=== PATIENT | female | born 1935 | race Caucasian/White ===

== ENCOUNTER → 2021-09-10 | Outpatient (CLI) | payer MEDICARE, OTHER | LOC: KOH-I 10:36 | DX: R05.9 Cough, unspecified (principal); R91.1 Solitary pulmonary nodule | CPT/HCPCS: 71046 ==

== ENCOUNTER → 2021-09-25 | Outpatient (CLI) | payer MEDICARE, OTHER | LOC: KOH-I 14:38 | DX: R93.89 Abnormal findings on diagnostic imaging of other specified body structures (principal); R91.8 Other nonspecific abnormal finding of lung field; K76.89 Other specified diseases of liver; K80.20 Calculus of gallbladder without cholecystitis without obstruction; E27.8 Other specified disorders of adrenal gland | CPT/HCPCS: 71250 ==

== ENCOUNTER → 2021-10-07 | Outpatient (CLI) | payer MEDICARE, OTHER | LOC: MRI 08:32 | DX: E27.8 Other specified disorders of adrenal gland (principal); R93.89 Abnormal findings on diagnostic imaging of other specified body structures | CPT/HCPCS: 36415; 74183; 82565; A9577 ==

== ENCOUNTER → 2021-11-11 | Outpatient (CLI) | payer MEDICARE, OTHER ==
[~2021-11-11] MED LIST: CALCIUM; HYDROCODON-ACE1 EAC6 PO; LIPITOR10 MG PO; TOPROL XL25 MG PO; VITAMIN B12; VITAMIN D; ZOFRAN 4 MG TAB4 MG PO
== END ==
LOC: OPSV2 12:30
DX: Z01.810 Encounter for preprocedural cardiovascular examination (principal); S52.502A Unspecified fracture of the lower end of left radius, initial encounter for closed fracture
CPT/HCPCS: 93005

== ENCOUNTER → 2021-11-12 | Day surgery (SDC) | payer MEDICARE, OTHER ==
[~2021-11-12] VITALS: Ht 162.6 cm; Wt 71.7 kg
== END | disposition home or self-care (01) ==
LOC: OR 09:01
DX: S52.502A Unspecified fracture of the lower end of left radius, initial encounter for closed fracture (principal); S52.602A Unspecified fracture of lower end of left ulna, initial encounter for closed fracture; W19.XXXA Unspecified fall, initial encounter; I10 Essential (primary) hypertension; E78.5 Hyperlipidemia, unspecified; E53.8 Deficiency of other specified B group vitamins; M81.0 Age-related osteoporosis without current pathological fracture; Z79.899 Other long term (current) drug therapy
CPT/HCPCS: 73100; 76000; C1713; J0690; J1100; J2001; J2370; J2704; J2795; J3010; J3370; J7120

== ENCOUNTER 2021-11-19 13:06 | Emergency (ER) | payer MEDICARE, OTHER ==
[2021-11-19 13:58] LABS: HEMOGLOBIN 13.4 gm/dl (12.3-15.3); RED BLOOD COUNT 4.23 M/UL (4.00-5.10); WHITE BLOOD COUNT 10.8 K/UL (4.5-11.0)
[2021-11-19 14:21] LABS: BUN/CREATININE RATIO 15 (0-10)
[2021-11-19] MEDS ORDERED: COLACE100 MG PO (16:10)
[2021-11-19] MEDS ORDERED: MOVANTIK25 MG PO (20:27)
[2021-11-19] MEDS ORDERED: ANUSOL-HC25 MG PR (20:27)
== END 2021-11-19 20:45 | disposition home or self-care (01) ==
LOC: ER1 13:06
PROVIDERS: Nurse Practitioner
DX: K59.00 Constipation, unspecified (principal); I10 Essential (primary) hypertension
CPT/HCPCS: 80053; 85025; 99284; J2212; Q9967

== ENCOUNTER → 2021-12-28 | Outpatient (CLI) | payer MEDICARE, OTHER ==
[~2021-12-28] MED LIST changes: +ANUSOL-HC25 MG PR; +COLACE100 MG PO; +MOVANTIK25 MG PO
== END ==
LOC: KOH-I 13:04
DX: R91.8 Other nonspecific abnormal finding of lung field (principal); R93.89 Abnormal findings on diagnostic imaging of other specified body structures
CPT/HCPCS: 71250

== ENCOUNTER → 2022-01-20 | Outpatient (CLI) | payer MEDICARE, OTHER ==
[~2022-01-20] VITALS: Ht 162.6 cm; Wt 72.6 kg
== END ==
LOC: OPSV 11-05 14:00
DX: M81.0 Age-related osteoporosis without current pathological fracture (principal)
CPT/HCPCS: 96372; J3489